=== PATIENT | male | born 1945 | race Caucasian/White ===

== ENCOUNTER → 2016-10-06 | Outpatient (CLI) | payer MEDICARE, BC | LOC: GMAB 14:32 | PROVIDERS: ATTEND Family Medicine | DX: R97.20 Elevated prostate specific antigen [PSA] (principal); I10 Essential (primary) hypertension ==

== ENCOUNTER → 2017-01-27 | Outpatient (CLI) | payer MEDICARE, BC | END | disposition home or self-care (01) | LOC: GMAB 16:50 | PROVIDERS: ATTEND Family Medicine | DX: R97.20 Elevated prostate specific antigen [PSA] (principal) ==

== ENCOUNTER → 2017-03-19 | Outpatient (CLI) | payer MEDICARE, BC | END | disposition home or self-care (01) | LOC: GMAB 14:27 | PROVIDERS: ATTEND Family Medicine | DX: M25.561 Pain in right knee (principal) ==

== ENCOUNTER → 2017-04-27 | Outpatient (CLI) | payer MEDICARE, BC | END | disposition home or self-care (01) | LOC: GMAB 11:17 | PROVIDERS: ATTEND Family Medicine | DX: M10.9 Gout, unspecified (principal); R97.20 Elevated prostate specific antigen [PSA] ==

== ENCOUNTER → 2017-06-10 | Outpatient (CLI) | payer MEDICARE, BC | END | disposition home or self-care (01) | LOC: GMAB 14:06 | PROVIDERS: ATTEND Family Medicine | DX: R97.20 Elevated prostate specific antigen [PSA] (principal) ==

== ENCOUNTER → 2017-08-12 | Outpatient (CLI) | payer MEDICARE, BC | END | disposition home or self-care (01) | LOC: GMAB 16:43 | PROVIDERS: ATTEND Family Medicine | DX: R97.20 Elevated prostate specific antigen [PSA] (principal) ==

== ENCOUNTER → 2017-10-27 | Outpatient (CLI) | payer MEDICARE | LOC: GMAB 15:32 | PROVIDERS: ATTEND Family Medicine | DX: R97.20 Elevated prostate specific antigen [PSA] (principal); I10 Essential (primary) hypertension ==

== ENCOUNTER → 2017-11-02 | Outpatient (CLI) | payer MEDICARE ==
--- NOTE | 2017-11-02 13:35 | RAD ---
EXAM DESCRIPTION: Hand,Right 3 Views CLINICAL HISTORY: PAIN IN RIGHT HAND COMPARISON: None Available. TECHNIQUE: AP, LATERAL, AND OBLIQUE FINDINGS: Three-view right hand shows no fracture or dislocation. There is no bone lesion. Degenerative osteoarthritic changes are seen at the DIP and PIP joints. There is also marked abnormality of the interphalangeal joint of the thumb probably posttraumatic arthrosis. Advanced degenerative changes in the lateral carpus are also present and there is severe narrowing of the radiocarpal joint. Degenerative narrowing is prominent at the second metacarpal phalangeal joint. Small periarticular lucencies could be tiny erosions which can be seen with erosive osteoarthrosis or gout. Clinical correlation recommended. Cystic changes are seen in the scaphoid. Degenerative narrowing of the scapholunate joint with some calcification of the triradiate cartilage There is no radiopaque foreign body. IMPRESSION: Arthritic changes of the hand and wrist as described as described. Electronically signed by: Artemio Koo MD 11/02/2017 1:34 PM [facility]
--- NOTE | 2017-11-02 13:39 | RAD ---
EXAM DESCRIPTION: Knee,Left Complete CLINICAL HISTORY: 72 years, Male, PAIN IN LEFT KNEE COMPARISON: None TECHNIQUE: 4 views of the left knee FINDINGS: No fracture or dislocation. Bones appear mildly osteopenic. Degenerated appearance of the medial more than lateral compartments on frontal view. Complete cartilage loss in the medial compartment. Prominent medial joint line spurring with spurring of the tibial spines. Tibia varus is seen. Lateral view shows normal position of the patella. Moderate posterior patellar spurring is seen with prominent spurring of the anterior femoral trochlea. Moderate to large suprapatellar knee joint effusion is present. Obscured contours of quadriceps and patellar tendons. Bone fragment anterior to the tibia suggests old trauma. Calcified meniscus is seen on lateral view. Densities posterior to the knee could be loose bodies. Lateral tilt of the patella with 4 mm lateral subluxation is seen. Patellar marginal osteophyte formation is noted on patellar sunrise view. IMPRESSION: Advanced degenerative osteoarthrosis with moderate to large knee joint effusion. Electronically signed by: Artemio Koo MD 11/02/2017 1:38 PM [facility]
--- NOTE | 2017-11-02 13:42 | RAD ---
EXAM DESCRIPTION: Pelvis CLINICAL HISTORY: 72 years Male, PAIN IN LEFT HIP COMPARISON: None TECHNIQUE: AP x-ray view of pelvis and proximal femurs FINDINGS: Degenerative changes are seen in the lower L-spine with vacuum disc phenomenon at L4-5. Degenerative changes are seen involving the right lateral transverse process at L5-S1. Bones of the pelvic ring appear intact. No hip dislocation or fracture. Degenerative changes are seen at the pubic symphysis. Sacrum appears intact. Vascular calcifications are seen in the pelvis. Degenerative spurring is seen along the lateral aspect of the right acetabular margin with convex right femoral head neck junction possibly early spurring. Hip joint spaces appear well-preserved. IMPRESSION: Degenerative changes as described. Electronically signed by: Artemio Koo MD 11/02/2017 1:41 PM [facility]
--- NOTE | 2017-11-02 13:48 | RAD ---
EXAM DESCRIPTION: Thumb,Right CLINICAL HISTORY: 72 years Male, PAIN IN RIGHT THUMB COMPARISON: None. TECHNIQUE: Right thumb 3 x-ray views FINDINGS: Advanced degenerative changes are seen involving the interphalangeal joint of the thumb. Small bone fragments are seen along the medial and lateral aspects of the base of the distal phalanx. Fragments are seen in the dorsal joint space. Linear lucencies through the cortex could be acute fractures involving the distal end of the proximal phalanx dorsally as well as base of the base of the distal phalanx along the palmar aspect. Clinical correlation recommended as to whether these abnormalities are more consistent with chronic degenerative changes or acute trauma. IMPRESSION: Fragmentation of the proximal and distal phalanges of the thumb surrounding the interphalangeal joint as described. Clinical correlation recommended as to whether acute or chronic osseous injury is thought most likely. Electronically signed by: Artemio Koo MD 11/02/2017 1:47 PM [facility]
== END ==
LOC: RAD 09:39
PROVIDERS: ATTEND Orthopaedic Surgery
DX: M25.552 Pain in left hip (principal); S62.511A Displaced fracture of proximal phalanx of right thumb, initial encounter for closed fracture; M17.12 Unilateral primary osteoarthritis, left knee; M13.841 Other specified arthritis, right hand; M13.831 Other specified arthritis, right wrist

== ENCOUNTER → 2017-11-19 | Outpatient (CLI) | payer MEDICARE ==
--- NOTE | 2017-11-20 09:36 | RAD ---
EXAM DESCRIPTION: Fingers,Right CLINICAL HISTORY: 72 years Male, FRACTURE OF PHALANX OF THUMB COMPARISON: Previous studies November 02, right thumb 3 views, right hand 3 views TECHNIQUE: 3 x-ray views of the right thumb FINDINGS: Comminuted fracture of the distal end of the proximal phalanx of the thumb is seen extending to the inner phalangeal joint. Fracture of the base of distal phalanx seen on previous study is not as well-visualized on the present exam which may be due to partial healing. Fragments are seen dorsally with configuration similar to previous study. No callus formation is yet evident. No periosteal new bone formation. No overlying soft tissue defect to suggest an open fracture. Clinical correlation recommended however. Degenerative changes are seen in the lateral carpus and at the first metacarpal phalangeal joint. IMPRESSION: No change in alignment of comminuted fracture of the right thumb. Electronically signed by: Artemio Koo MD 11/20/2017 9:35 AM [employer]
== END ==
LOC: RAD 10:35
PROVIDERS: ATTEND Orthopaedic Surgery
DX: S62.501D Fracture of unspecified phalanx of right thumb, subsequent encounter for fracture with routine healing (principal)

== ENCOUNTER → 2017-12-08 | Outpatient (CLI) | payer MEDICARE ==
--- NOTE | 2017-12-09 16:05 | US ---
THYROID ULTRASOUND CLINICAL INFORMATION: Thyroid nodule TECHNIQUE: Thyroid sonography was performed. COMPARISON: None FINDINGS: Thyroid size: Right lobe measures 6.5 x 3.1 x 3.2 cm. Left lobe measures 6.3 x 2.4 x 2.9 cm. Thyroid isthmus measures 4.2 mm in thickness in the midline. Texture: Coarse texture with multiple nodules. Estimated total number of nodules >/=1 cm: 3 Right In the right thyroid lobe, a nodule is seen superiorly which is predominantly solid measuring 0.9 x 0.9 x 0.7 cm. In the mid to upper right thyroid lobe posteriorly, a mass measures 1.9 x 1.6 x 1.9 cm. Biopsy is recommended for this nodule utilizing ultrasound guidance. Another mid lateral right thyroid nodule measures 0.7 x 0.8 x 0.8 cm. Left In the mid posterolateral left lobe a solid nodule measures 1 x 0.9 x 0.9 cm. No internal microcalcifications. This can be followed with repeat imaging in 1 year. In the anterior mid left thyroid lobe a hypoechoic nodule measures 1.3 x 0.9 x 0.7 cm. This could also be followed. IMPRESSION: Dominant sonographically solid nodule in the right thyroid lobe measuring 1.9 cm in greatest dimension. Further evaluation with fine-needle aspiration biopsy is recommended. Other nodules less than 1.5 cm can be followed up with thyroid sonography in one year. Electronically signed by: Artemio Koo MD 12/09/2017 4:02 PM CDT
== END ==
LOC: US 14:43
PROVIDERS: ATTEND Family Medicine
DX: E04.1 Nontoxic single thyroid nodule (principal)

== ENCOUNTER → 2017-12-17 | Outpatient (CLI) | payer MEDICARE ==
--- NOTE | 2017-12-17 12:13 | RAD ---
Right thumb HISTORY: Closed fracture COMPARISON: November 19, 2017 FINDINGS: Three views of right thumb again demonstrate irregular lucency along the proximal phalanx near the IP joint of right thumb. There is bony fragmentation in this region. Remaining bony structures appear intact with unremarkable alignment. Diffuse soft tissue swelling again noted along the thumb without soft tissue gas. IMPRESSION: Comminuted but nondisplaced fracture in the proximal phalanx of right thumb, with stable appearance since prior study Electronically signed by: Raphael Landeros MD 12/17/2017 12:11 PM CDT
== END | disposition home or self-care (01) ==
LOC: RAD 09:56
PROVIDERS: ATTEND Orthopaedic Surgery
DX: S62.501D Fracture of unspecified phalanx of right thumb, subsequent encounter for fracture with routine healing (principal)

== ENCOUNTER → 2018-01-31 | Outpatient (CLI) | payer MEDICARE ==
--- NOTE | 2018-01-31 12:54 | RAD ---
EXAM DESCRIPTION: Thumb,Right CLINICAL HISTORY: CLOSED FX OF PHALANX OF THUMB COMPARISON: 17 December 2017 TECHNIQUE: 3 views of the first digit of the right hand FINDINGS: A comminuted fracture of the distal aspect of the proximal phalanx of the first digit is observed. There is extension into the inner phalangeal joint. The distal phalanx is impacted along its medial border. No significant callus formation is observed. No significant interval changes observed in the prior exam. IMPRESSION: Comminuted fracture of the distal aspect of the proximal phalanx of the first digit of the right hand. No significant interval change is noted. Electronically signed by: Jordy Erwin MD 01/31/2018 12:53 PM CDT
== END ==
LOC: RAD 09:51
PROVIDERS: ATTEND Orthopaedic Surgery
DX: S62.501D Fracture of unspecified phalanx of right thumb, subsequent encounter for fracture with routine healing (principal)

== ENCOUNTER → 2018-07-06 | Outpatient (CLI) | payer MEDICARE | LOC: GMAE 14:21 | PROVIDERS: ATTEND Family Medicine | DX: R97.20 Elevated prostate specific antigen [PSA] (principal) ==

== ENCOUNTER → 2019-01-05 | Outpatient (CLI) | payer MEDICARE | LOC: GMAE 10:45 | PROVIDERS: ATTEND Family Medicine | DX: R97.20 Elevated prostate specific antigen [PSA] (principal); I10 Essential (primary) hypertension; M10.9 Gout, unspecified ==

== ENCOUNTER 2019-02-13 11:37 | Emergency (ER) | payer MEDICARE ==
[2019-02-13 11:50] VITALS: TEMP 97.9
[2019-02-13] MEDS ORDERED: OXYMETAZOLINE NASAL SPRAY 15 ML BTTL ONE (11:52)
--- NOTE | 2019-02-13 12:05 | ED.PDOC ---
History of Present Illness - General Chief Complaint: ENT Problem Stated Complaint: nosebleed x2 hrs Time Seen by Provider: 02/13/19 11:47 Source: patient Exam Limitations: no limitations - History of Present Illness Initial Comments: Spontaneous epistaxis x 2 hrs while sitting at home. Denies injury or Hx of this. Pt takes aspirin daily. has Hx of allergic rhinitis Timing/Duration: abrupt, intermittent, this morning Severity: moderate EENT Location: nose Prearrival Treatment: squeezing nostrils, nasal packing Improving Factors: nothing Worsening Factors: nothing Associated Symptoms: denies symptoms Allergies/Adverse Reactions: Allergies NO KNOWN ALLERGY Allergy (Verified 02/13/19 11:44) Home Medications: Ambulatory Orders Allopurinol 300 mg PO DAILY 02/13/19 Amlodipine Besylate 5 mg PO DAILY 02/13/19 Aspirin [Aspirin Childrens] 81 mg PO DAILY 02/13/19 Finasteride [Proscar] 5 mg PO DAILY 02/13/19 Meloxicam 15 mg PO DAILY 02/13/19 Tamsulosin HCl 0.4 mg PO DAILY 02/13/19 Review of Systems - Review of Systems Constitutional: States: no symptoms reported EENTM: Denies: nose pain, nose congestion, throat pain, mouth pain Respiratory: States: no symptoms reported. Denies: cough, short of breath Gastrointestinal/Abdominal: States: nausea. Denies: abdominal pain, vomiting Hematologic/Lymphatic: Denies: anemia, blood clots, easy bruising Past Medical History (General) - Patient Medical History Hx Seizures: No Hx Stroke: No Hx of COPD: No Hx Cardiac Disorders: Yes - hypertension Hx Congestive Heart Failure: No Hx Thyroid Disease: No Hx Diabetes: No Surgical History: no surgical history - Social History Hx Tobacco Use: Yes Family Medical History - Family History Mother Family History: No Known Physical Exam - Physical Exam General Appearance: Alert, Anxious Eye Exam: bilateral normal Nasal Exam: active bleeding - trace bleeding from L nostril, anterior septum Throat Exam: other - small amount blood in posterior pharynx Departure - Departure Clinical Impression: Epistaxis Disposition: Discharge to Home or Self Care Condition: Fair Departure Forms: ED Discharge - Pt. Copy, Patient Portal Self Enrollment Instructions: DI for Ear Pain-Adult Home Medications: Ambulatory Orders Allopurinol 300 mg PO DAILY 02/13/19 Amlodipine Besylate 5 mg PO DAILY 02/13/19 Aspirin [Aspirin Childrens] 81 mg PO DAILY 02/13/19 Finasteride [Proscar] 5 mg PO DAILY 02/13/19 Meloxicam 15 mg PO DAILY 02/13/19 Tamsulosin HCl 0.4 mg PO DAILY 02/13/19 Additional Instructions: Nasal balloon removal in 24 hrs
[2019-02-13] MEDS ORDERED: OXYMETAZOLINE NASAL SPRAY 15 ML BTTL NAS PRN (12:13)
[2019-02-13 12:54] VITALS: BP 147/80
[2019-02-13 13:21] VITALS: O2SAT 96
== END 2019-02-13 13:22 | disposition home or self-care (01) ==
LOC: ER 11:37
DX: R04.0 Epistaxis (principal); I51.9 Heart disease, unspecified; I10 Essential (primary) hypertension; Z87.891 Personal history of nicotine dependence; Z79.82 Long term (current) use of aspirin; Z79.899 Other long term (current) drug therapy

== ENCOUNTER → 2019-05-12 | Outpatient (CLI) | payer MEDICARE | LOC: RAD 09:25 | PROVIDERS: ATTEND Orthopaedic Surgery | DX: M19.011 Primary osteoarthritis, right shoulder (principal); M19.012 Primary osteoarthritis, left shoulder ==

== ENCOUNTER → 2020-01-10 | Outpatient (CLI) | payer MEDICARE | LOC: GMAE 11:19 | PROVIDERS: ATTEND Family Medicine | DX: Z12.5 Encounter for screening for malignant neoplasm of prostate (principal); I10 Essential (primary) hypertension | CPT/HCPCS: 84443; G0103 ==